=== PATIENT | female | born 1990 | race Caucasian/White ===

== ENCOUNTER → 2023-03-21 11:16 | Outpatient (CLI) | payer OTHER, SELFPAY ==
--- NOTE | ~2023-03-21 | US_ITS ---
EXAMINATION: US transvaginal DATE: 03/21/2023 11:35 INDICATION: Pelvic pain. TECHNIQUE: Multiple transvaginal sonographic images of the pelvis were obtained. COMPARISON: None. FINDINGS: The uterus measures 7.4 x 3.2 x 4.6 cm. There is no free fluid in the pelvis. The endometrial complex measures 6 mm in thickness. The right ovary measures 2.5 x 1.6 x 2.1 cm. The left ovary measures 2.2 x 2.3 x 1.7 cm. There is normal vascular flow in the ovaries. IMPRESSION: 1. Normal pelvis. Reviewed, dictated and finalized at location A. IMPRESSION: 1. Normal pelvis.
== END ==
PROVIDERS: PCP Advanced Practice Midwife; Visit Provider Advanced Practice Midwife
DX: R10.2 Pelvic and perineal pain (principal)
CPT/HCPCS: 76830

== ENCOUNTER 2025-03-12 13:28 | Emergency (ER) | payer OTHER, SELFPAY ==
[2025-03-12 13:38] VITALS: BP 123/83; PULSE 78; RESP 18; TEMP 36.1; O2SAT 100
--- NOTE | 2025-03-12 13:56 | ED_ITS ---
HPI - Extremity Problem General Chief complaint: Extremity Problem,Nontraumatic Stated complaint: LT Arm Pain / Numbness / tingling Time Seen by Provider: 03/12/25 13:56 Source: patient and RN notes reviewed Mode of arrival: ambulatory Limitations: no limitations History of Present Illness HPI Narrative: Patient presents today complaining of pain to the left elbow radiating to the left 4th and 5th fingers and up to the left shoulder. Symptoms have been present since last night. Denies any recent injury or trauma. She has tried ice, heat, and an elbow brace without improvement. History of cubital tunnel an d states she is having an exacerbation. She has not tried any [id number] Tylenol or ibuprofen as she states that typically does not help during exacerbations such as this. She is under the care of Dr. House at [facility] for her cubital tunnel, their office is closed today. She currently rates her pain 8/10. Related Data Home Medications ?Medication ?Instructions ?Recorded ?Confirmed ?Last Taken ?Type atogepant 30 mg tablet (Qulipta) mg 03/12/25 Unknown History escitalopram oxalate 10 mg tablet mg 03/12/25 Unknown History etanercept 50 mg/mL (1 mL) mg subcut 03/12/25 Unknown History subcutaneous cartridge (Enbrel Mini) hydroxychloroquine 200 mg tablet mg PO 03/12/25 Unknown History hydroxyzine HCl 50 mg tablet mg 03/12/25 Unknown History norethindrone 1 mg-ethinyl tablet 03/12/25 Unknown History estradiol 20 mcg (21)-iron 75 mg (7) tablet (Aurovela Fe 1-20 (28)) pantoprazole 40 mg tablet,delayed mg PO 03/12/25 Unknown History release propranolol 10 mg tablet mg 03/12/25 Unknown History Allergies Allergy/AdvReac Type Severity Reaction Status Date / Time No Known Allergies Allergy Verified 03/12/25 13:35 Review of Systems Review of Systems: CONSTITUTIONAL: Denies body aches, fever, chills, or sweats. EYES: Denies visual changes, redness, or discharge. ENT: Denies rhinorrhea, congestion, sore throat, or otalgia. CARDIOVASCULAR: Denies chest pain, palpitations, or edema. RESPIRATORY: Denies cough or dyspnea. GASTROINTESTINAL: Denies abdominal pain, nausea, vomiting, or diarrhea. GENITOURINARY: Denies dysuria or hematuria. SKIN: Denies rash, itching, or wounds. MUSCULOSKELETAL: Left arm pain. NEUROLOGIC: Numbness and tingling of the elbow, forearm, fingers PSYCH: Denies depression or anxiety. PMFSH Comments At time of signature, I have reviewed and agree with nursing past medical, surgical, social and family history unless otherwise noted. Please see nursing chart for further information. There is no relevant family history pertinent to the presenting complaint Exam Narrative: GENERAL: Well-appearing, well-nourished, and in no acute distress. HEAD: Normocephalic, atraumatic. EYES: EOMI. No redness or drainage. Conjunctivae normal. ENT: Mucous membranes pink and moist. NECK: Normal AROM. CHEST: No respiratory distress. EXTREMITIES: Left arm: Tenderness to the medial epicondyle extends down the forearm to the 4th and 5th fingers. No edema, erythema, ecchymosis. Pain with range of motion of the elbow and wrist. Distal sensation intact in all 5 fingers. Capillary refill normal. Radial pulse normal. Mild generalized te nderness to the upper arm and shoulder. SKIN: Warm, dry, no rash. Capillary refill normal. Normal skin turgor. NEURO: No focal deficits. Alert and oriented x3. Gait steady. PSYCH: Normal affect. No signs of depression or anxiety. Course Course Level of Care: Express Care Visit Vital Signs Vital signs: Vital Signs Temperature 97.0 F L 03/12/25 13:38 Pulse Rate 78 03/12/25 13:38 Respiratory Rate 18 03/12/25 13:38 Blood Pressure 123/83 03/12/25 13:38 Pulse Oximetry 100 03/12/25 13:38 Oxygen Delivery Room Air 03/12/25 13:38 Temperature 97.0 F L 03/12/25 13:38 Pulse Rate 78 03/12/25 13:38 Respiratory Rate 18 03/12/25 13:38 Blood Pressure 123/83 03/12/25 13:38 Pulse Oximetry 100 03/12/25 13:38 Oxygen Delivery Room Air 03/12/25 13:38 Reviewed MDM - Extremity (Nontraumatic) MDM Narrative Medical decision making narrative: Patient is a pleasant 35-year-old female patient with history lupus for which she takes Plaquenil. History of cubital tunnel syndrome. She is tender over the ulnar nerve/medial epicondyle area and is having some numbness and tingling to the 4th and 5th fingers associated with this cubital tunnel syndrome. She will be treated with prednisone burst to help with inflammation and discomfort. She has also been instructed to wear her brace that was prescribed by her orthopedist. Patient agrees with plan. Anticipatory guidance given. Differential Diagnosis Differential diagnosis: Likely other (Cubital tunnel, carpal tunnel, epicondylitis) Critical Care Time Critical Care Time Critical Care Time: No Discharge Plan Discharge Clinical Impression: Cubital tunnel syndrome Qualifiers: Laterality: left Qualified Code(s): G56.22 - Lesion of ulnar nerve, left upper limb Patient Disposition: Home Condition: Stable Additional Instructions: Please take the prednisone as directed to help with the inflammation of your ulnar nerve. Wear your brace prescribed by Dr. House. You may also take additional Tylenol or ibuprofen if needed. Follow-up next week if symptoms are not improving. Your blood pressure was elevated above 120/80 today at Urgent Care. This puts you above the threshold for follow up. Please schedule a followup visit with your personal physician as soon as possible, for further evaluation and treatment. Even blood pressure exceeding 120/80 may indicate pre-hypertension. Patient Language: [place] Prescriptions: New prednisone 20 mg tablet 40 mg PO DAILY 5 Days Qty: 10 0RF No Action hydroxyzine HCl 50 mg tablet norethindrone-e.estradiol-iron [Aurovela Fe 1-20 (28)] 1 mg-20 mcg (21)/75 mg (7) tablet propranolol 10 mg tablet pantoprazole 40 mg tablet,delayed release (DR/EC) PO hydroxychloroquine 200 mg tablet PO escitalopram oxalate 10 mg tablet Enbrel Mini 50 mg/mL (1 mL) cartridge SUBCUT Qulipta 30 mg tablet Follow-up/Referrals: Omer,Lady Quinonez NP [Primary Care Provider] - Time of Disposition: 14:04
== END 2025-03-12 14:05 | disposition home or self-care (01) ==
PROVIDERS: Emergency Provider Nurse Practitioner; PCP Nurse Practitioner
DX: G56.22 Lesion of ulnar nerve, left upper limb (principal); Z79.899 Other long term (current) drug therapy
CPT/HCPCS: 99213; G0463

== ENCOUNTER 2025-08-04 08:49 | Emergency (ER) | payer OTHER, SELFPAY ==
--- NOTE | 2025-08-04 08:51 | ED_ITS ---
HPI - URI/Sore Throat General Chief Complaint: Upper Respiratory Infection Stated Complaint: URI Symptoms Time Seen by Provider: 08/04/25 08:51 Source: patient Mode of arrival: ambulatory Limitations: no limitations History of Present Illness HPI Narrative: Ozzie is a 35 year old female patient presenting to the clinic today with c/o runny nose, non productive cough, body aches, chills, bilateral ear pain, and sore throat x3 days. She reports she has taken cough drops, zicam, and otc cold medication. Rates pain 03/24 currently. Denies any chest pain or shortness of breath. Related Data Home Medications ?Medication ?Instructions ?Recorded ?Confirmed ?Last Taken ?Type atogepant 30 mg tablet (Qulipta) mg 03/12/25 Unknown History escitalopram oxalate 10 mg tablet mg 03/12/25 Unknown History etanercept 50 mg/mL (1 mL) mg subcut 03/12/25 Unknown History subcutaneous cartridge (Enbrel Mini) hydroxychloroquine 200 mg tablet mg PO 03/12/25 Unkno wn History hydroxyzine HCl 50 mg tablet mg 03/12/25 Unknown Hist ory norethindrone 1 mg-ethinyl tablet 03/12/25 Unknown Hi story estradiol 20 mcg (21)-iron 75 mg (7) tablet (Aurovela Fe 1-20 (28)) pantoprazole 40 mg tablet,delayed mg PO 03/12/25 Unkn own History release propranolol 10 mg tablet mg 03/12/25 Unknown History Allergies Allergy/AdvReac Type Severity Reaction Status Date / Time No Known Allergies Allergy Verified 08/04/25 09:07 Review of Systems Review of Systems: Pertinent positives per HPI. Patient denies any fever, rash, headache, visual changes, dizziness, shortness of breath, chest pain, palpitations, nausea, vomiting, diarrhea, constipation, abdominal pain, or any urinary issues. [facility] Comments At the time of my signature, I reviewed and agree with the nursing past medical, surgical, social, and family history. There is no relevant family history pertinent to the patient complaint. Exam Narrative: General: Well-developed, obese, in no apparent distress Head: Normocephalic, atraumatic Eyes: Pupils equally round and reactive to light bilaterally, EOM intact, sclera and conjunctive clear, no discharge, lids normal Ears: TMs intact and clear, ear canals clear, no drainage, grossly hearing normal. Nose: Nares patent, clear nasal discharge, mild inflammation, no sinus tenderness. Mouth: Oral pharynx mildly red without lesions or masses, good dentition, MMM. Neck: Supple, trachea midline, no enlargement of anterior or posterior cervical nodes, no thyroid masses or goiter palpable. Cardio: Regular rate and rhythm, s1 and s2 normal, no murmur appreciated. Resp: Clear to auscultation bilaterally, no rhonchi, rales, wheezing or rubs Course Course Emergency Course: Portions of this record may have been created with voice recognition software. Level of Care: Express Care Visit Vital Signs Vital signs: Vital Signs Temperature 36.4 C 08/04/25 09:00 Pulse Rate 98 08/04/25 09:00 Respiratory Rate 17 08/04/25 09:00 Blood Pressure 129/86 08/04/25 09:00 Pulse Oximetry 99 08/04/25 09:00 Oxygen Delivery Room Air 08/04/25 09:00 Temperature 36.4 C 08/04/25 09:00 Pulse Rate 98 08/04/25 09:00 Respiratory Rate 17 08/04/25 09:00 Blood Pressure 129/86 08/04/25 09:00 Pulse Oximetry 99 08/04/25 09:00 Oxygen Delivery Room Air 08/04/25 09:00 Vital signs reviewed Procedures Ear Wax Removal Both Ears: Ear Wax Removal Date: 08/04/25 Cerumenolytic Used: other (Debrox) Results: Re-examined: some cerumen remains TM Examination: TM(s) intact, normal appearance and other Ear Canal Exam: atraumatic Patient Tolerated Procedure: well and no complications Complications: no problems Technique: ear canal irrigated and ear canal curetted Additional Comments: Verbal consent obtained for ear irrigation. Risk and benefits explained and patient voiced understanding. Ear irrigation performed using an elephant ear and spray water bottle. Mixture of 1/2 peroxide 1/2 water used to irrigate ear canal. Some cerumen remains and TM visualized without redness. Attempted removal with lighted curette without success Grossly hearing normal. Patient tolerated procedure well MDM - URI/Sore Throat MDM Narrative Medical decision making narrative: At the time of visit patient is resting comfortably on the exam table. Patient appears to be nontoxic. C/o runny nose, non productive cough, body aches, chills, bilateral ear pain, and sore throat x3 days. She reports she has taken cough drops, zicam, and otc cold medication. Rates pain 7/10 currently. Denies any chest pain or shortness of breath. Labs: COVID, influenza, and strep test were performed. All test was negative in the clinic today. Plan: I suspect patient has URI/pharyngitis/cerumen impaction. Supportive measures were discussed with the patient and they voiced understanding discharge instructions and agrees to treatment plan. Return precautions reviewed Differential Diagnosis Differential diagnosis: Likely upper respiratory infection, otitis media, sinusitis, viral infection, bronchitis, influenza, pharyngitis and other Lab Data Labs: Lab Results 08/04/25 Range/Units 09:22 POC Influenza A Ag Negative (Negative) POC Influenza B Ag Negative (Negative) POC SARS CoV-2 Ag Negative (Negative) POC Grp A Strep Screen Negative (Negative) Discharge Plan Discharge Clinical Impression: Bilateral impacted cerumen Upper respiratory infection Qualifiers: URI type: unspecified URI Qualified Code(s): J06.9 - Acute upper respiratory infection, unspecified Pharyngitis Qualifiers: Pharyngitis/tonsillitis etiology: unspecified etiology Qualified Code(s): J02.9 - Acute pharyngitis, unspecified Patient Disposition: Home Condition: Stable Instructions: Antibiotic Form, Pharyngitis (ED), Cold Symptoms (ED) Additional Instructions: Ear irrigation performed in the clinic today. Some cerumen remains COVID, flu, and strep test were negative in the clinic today. We will send strep for culture. Increase fluids and stay well hydrated May take Tylenol or motrin as directed on bottle for pain/fever May use Flonase 1 spray in each nare daily May take OTC antihistamines such as Zyrtec or Claritin daily as directed on bottle May apply Vicks vapor rub to chest to open sinuses Sinus rinses for congestion Cepacol spray, cough drops, throat lozenges, warm tea with honey/lemon, gargle salt water to soothe throat BRAT diet for diarrhea Clear liquids x 24 hours then advance as tolerated for nausea/vomiting Go to the ED if you develop a worsening in your condition- high fever not controlled by Tylenol or Motrin, dehydration, weakness, lethargy, shortness of breath, or chest pain. Follow up with your PCP in 3-5 days if symptoms persist. Patient Language: Mongolian Prescriptions: No Action hydroxyzine HCl 50 mg tablet norethindrone-e.estradiol-iron [Aurovela Fe 1-20 (28)] 1 mg-20 mcg (21)/75 mg (7) tablet propranolol 10 mg tablet pantoprazole 40 mg tablet,delayed release (DR/EC) PO hydroxychloroquine 200 mg tablet PO escitalopram oxalate 10 mg tablet Enbrel Mini 50 mg/mL (1 mL) cartridge SUBCUT Qulipta 30 mg tablet Follow-up/Referrals: UNKNOWN,DOCTOR [Primary Care Provider] Time of Disposition: 09:58 Quality NIHSS Nursing Documentation ED NIHSS nursing documentation: reviewed/agree
[2025-08-04 09:00] VITALS: BP 129/86; PULSE 98; RESP 17; TEMP 36.4; O2SAT 99
[2025-08-04] MEDS: CARBAMIDE PEROXIDE 6.5% OT SOLN 15 ML BTL 5 DROP EACH EAR (09:20)
[2025-08-04 09:24] LABS: EDCOVIDSCREEN Negative (Negative); EDINFLUASCREEN Negative (Negative); EDINFLUBSCREEN Negative (Negative); EDSTREPNEGPOS1 Negative (Negative)
--- OUTSIDE RECORDS SUMMARY | 2025-08-04 09:33 | XMS_ITS | Clinical Summary ---
Author Organization [facility] Address [address] Attn: Epic Prelude ADT [place] [address] Care Team Providers Care Performance Analyst Name Role Phone Unavailable Primary Care Provider Unavailabl e Allergies No known active allergies Social History Tobacco Use Types Packs/Day Years Used Date Smoking Tobacco: Never Assessed Comments Unknown Sex and Gender Information Value Date Recorded Sex Assigned at Not on file Legal Sex Female 2:02 PM [facility] Gender Identity Not on file Sexual Orientation Not on file Plan of Treatment Health Maintenance Due Date Last Done Comments DTAP/TDAP/TD VACCINES (1 - Tdap) 2009 HEPATITIS B VACCINES (1 of 3 - 19+ 3-dose series) 12/15 HPV/Cotest (21-29) 2011 HPV VACCINES (1 - 3-dose SCDM series) 2017 CERVICAL CANCER SCREENING 01/09/2020 HPV/Cotest (30-65) 01/09/2020 PAP SMEAR 01/09/2020 INFLUENZA VACCINE (#1) [address] [place] [address] [place] [address] RX [facility] [employer] [facility] [employer]
--- OUTSIDE RECORDS SUMMARY | 2025-08-04 09:33 | XMS_ITS | CCD ---
Author Name Interface, [id number] [facility] [place] [address] [facility] [place] [address] Reason for Visit Social History Date Name Value 01/19/2022 Sex Female
--- OUTSIDE RECORDS SUMMARY | 2025-08-04 09:34 | XMS_ITS | CCD ---
Author Name Interface, [id number] [facility] [place] [address] [facility] [place] [address] Reason for Visit Social History Date Name Value 01/19/2022 Sex Female
--- OUTSIDE RECORDS SUMMARY | 2025-08-04 09:35 | XMS_ITS | Data Portability ---
Author Organization [employer] , [facility] Address [address] [place] [address] Assessment No assessment recorded. Plan of Treatment Reminders Order Date Submit Date Provider Last Modified By Organization Details Last Modified Time Details Appointments None recorded. Lab bacterial vaginosis + vaginitis panel, vaginal 2024 025 [employer] [facility], [address] [place], [address], 5 15:08:41 HPV E6+E7 mRNA, qualitative PCR, cervix 2024 025 [employer] [facility], [address] [place], [address], 5 15:08:42 pap, LB 2024 025 [facility], [address] [facility], [place], [address], 5 10:30:07 Referral None recorded. Procedures None recorded. Surgeries None recorded. Imaging None recorded. Medication Orders 10/04 (28) 1 mg-20 mcg (21)/75 mg (7) tablet 2024 025 [employer] [id number], [address], [place], [address], 14:00:16 Patient TargetsNo targets recorded. Patient Instructions Encounter Date Encounter Id Patient Instructions Last Modified By Organization Details Last Modified Time 11/23/2024 [id number] body mass index: care instructions Not available 11/23/2024 11:20:22 A healthy lifestyle: care instructions Not available 11/23/2024 11:20:22 Following the [employer] Food Guide: Care Instructions Not available 11/23/2024 11:20:22 exercise program : getting started Not available 11/23/2024 11:20:22 learning about control Not available 11/23/2024 11:20:22 Reason for Referral None Reported. Results Created Date Observation Date Name Description Value Unit Range Abnormal Flag Note LastModifiedBy Organization Detail LastModifiedTime 11/24/19 25 11/24/2024 VAGIN ITIS PLUS STD PANEL bacterial vaginosis BV neg negati ve normal Not Available [address], [address], 11/24/2024 15:08:41 11/24/19 25 11/24/2024 VAGIN ITIS PLUS STD PANEL mika species C. spp neg negati ve normal Not Available [address], [address], 11/24/2024 15:08:41 11/24/19 25 11/24/2024 VAGIN ITIS PLUS STD PANEL mika glabrata C. gla neg negati ve normal Not Available [address], [address], 11/24/2024 15:08:41 11/24/19 25 11/24/2024 VAGIN ITIS PLUS STD PANEL trichomonas vaginalis CV/TV TRICH neg negati ve normal Not Available [address], [address], 11/24/2024 15:08:41 11/24/19 25 11/24/2024 VAGIN ITIS PLUS STD PANEL chlamydia trachomatis CT neg negati ve normal This repor t is inten ded for us in clini solomon monit oring and manag ement of patie nts. It is not inten ded for use in medic al-le gal appli catio n. Not Available [address], [address], 11/24/2024 15:08:41 11/24/19 25 11/24/2024 VAGIN ITIS PLUS STD PANEL neisseria gonorrhoeae GC neg negati ve normal This repor t is inten ded for us in clini solomon monit oring and manag ement of mode mitchell. It is not inten ded for use in medic al-le gal appli catio n. Not Available [facility] [address] [place], [address], 11/24/2024 15:08:41 11/24/19 25 11/24/2024 HPV HIGH RISK HPV high risk Negati ve negati ve normal The HPV High Risk assay is inten ded for use as co-te sting with cytol ogy and not as a subst itute for regul ar cervi solomon cytol ogy scree christine. This assay is not inten ded for use as a scree christine devic e for women under age 30 with dennis l cervi solomon cytol ogy. Not Available [facility] [address] [place], [address], 11/24/2024 15:08:42 11/24/19 25 11/26/2024 THINP REP TIS PAP clinical information: normal None given Not Available [employer] [address] [address] [place], [address], 11/26/2024 10:30:06 11/24/19 25 11/26/2024 THINP REP TIS PAP LMP: normal None given Not Available [employer] [address] [address] [place], [address], 11/26/2024 10:30:06 11/24/19 25 11/26/2024 THINP REP TIS PAP prev. Pap: normal None given Not Available [employer] [address] [address] [place], [address], 11/26/2024 10:30:06 11/24/19 25 11/26/2024 THINP REP TIS PAP prev. BX: normal None given Not Available [facility] [place] [address] [place], [address], 11/26/2024 10:30:06 11/24/1911/26/2024 THINP REP TIS PAP source: normal Cervi x Not Available [address] [address] [place], [address], 11/26/2024 10:30:06 11/24/1911/26/2024 THINP REP TIS PAP statement of adequacy: normal Satis facto ry for evalu ation . Endoc ervic al/tr ansfo rmati on zone compo nent prese nt. Age and/o r menst rual statu s not provi ded Not Available [address] [address] , [place], [address], 11/26/2024 10:30:06 11/24/1911/26/2024 THINP REP TIS PAP interpretati on/result: normal Cytol ogy Resul ts: Negat gricel for intra epith elial lesio n or malig jose miguel . Not Available [address] [address] [place], [address], 11/26/2024 10:30:06 11/24/19 25 11/26/2024 THINP REP TIS PAP comment: normal This Pap test has been evalu ated with compu ter malik mellissa techn ology . Not Available [address] [address] [place], [address], 11/26/2024 10:30:06 11/24/19 25 11/26/2024 THINP REP TIS PAP cytotechnolo gist: normal BES, CT( CP) CT scree christine locat ion: [place] [place] [address] Not Available [address] [address] [place], [address], 11/26/2024 10:30:06 11/24/19 25 11/26/2024 THINP REP TIS PAP review cytotechnolo gist: normal LMT, CT( CP) CT scree christine locat ion: [address] [place] [address] [address] [place] [place] [address] Not Available [address] [address] [place], [address], 11/26/2024 10:30:06 11/24/19 25 11/26/2024 THINP REP TIS PAP comment EXPLA NATOR Y NOTE: The Pap is a scree christine test for cervi solomon cance r. It is not a diagn ostic test and is subje ct to false negat gricel and false posit gricel resul ts. It is most relia ble when a satis facto ry sampl e, regul mariah obtai viv, is submi tted with relev ant clini solomon findi ngs and histo ry, and when the Pap resul t is evalu ated along with histo danyell and curre nt clini solomon infor matio n. Not Available [facility] [address] [address] [address], [place], [address], 11/26/2024 10:30:06 Result Notes None recorded. Procedures Surgical History Date Name Laterality Status Provider Name and Address Organization Details Recorded Time 4 Date of Last Pap Smear completed [facility] 11/23/2024 10:49:14 Colonoscopy completed [facility] 11/23/2024 10:49:15 C Section completed [facility] 11/23/2024 10:49:15 Imaging Results None recorded. Procedure Notes None recorded. Medical Equipment None Reported. Allergies No known drug allergies Medications Name Sig Start Date Stop Date Status Note LastModified by Organization Details LastModified Time amoxicillin 500 mg capsule TAKE 1 CAPSULE BY MOUTH TWICE A DAY FOR 10 DAYS 11/23 completed Not Available Not Available Not Available trazodone 50 mg tablet TAKE 0.5-1 TABLET (25-50 MG) BY MOUTH EVERY DAY AT BEDTIME active Not Available Not Available No t Available fluconazole 150 mg tablet TAKE 1 TABLET (150 MG TOTAL) BY MOUTH ONCE FOR 1 DOSE. 11/23 completed Not Available Not Available Not Available clonazepam 0.5 mg tablet TAKE 1/2 (HALF A) TABLET (0.25 MG) BY MOUTH 2 TIMES PER DAY NEEDED FOR ANXIETY 11/23 completed Not Available Not Available Not Available prednisone 5 mg tablet TAKE 2 TABS BY MOUTH X 5 DAYS, THEN 1 TAB BY MOUTH X 5 DAYS, THEN 1/2 A TAB BY MOUTH X 5 DAYS 11/23 completed Not Available Not Available Not Available hydroxyzine HCl 50 mg tablet TAKE 1 TABLET BY MOUTH EVERY DAY NEEDED FOR 30 DAYS active Not Available Not Available No t Available amoxicillin 875 mg tablet TAKE 1 TABLET BY MOUTH TWICE A DAY FOR 10 DAYS 11/23 completed Not Available Not Available Not Available pantoprazol e 40 mg tablet,kari yed release TAKE 1 TABLET BY MOUTH EVERY DAY active Not Available Not Available No t Available bupropion HCl 75 mg tablet TAKE 1 TABLET BY MOUTH EVERY DAY FOR 7 DAYS 11/23 completed Not Available Not Available Not Available hydroxychlo roquine 200 mg tablet TAKE 1 TABLET BY MOUTH TWICE A DAY active Not Available Not Available No t Available () 1.5 mg-30 mcg tablet TAKE 1 TABLET BY MOUTH EVERY DAY CONTINOUS LY active Not Available Not Available No t Available bupropion HCl XL 150 mg 24 hr tablet, extended release TAKE 1 TABLET BY MOUTH EVERY DAY IN THE MORNING active Not Available Not Available No t Available 10/04 () 1 mg-20 mcg (21)/75 mg (7) tablet Take 1 tablet every day by oral route for 90 days. 2024 active Not Available Not Available Not Avai lable (28) 1.5 mg-30 mcg (21)/75 mg (7) tablet TAKE 1 TABLET BY MOUTH EVERY DAY 11/23 completed Not Available Not Available Not Available Enbrel 50 mg/mL (1 mL) subcutaneou s syringe Inject 1 mL every week by subcutane ous route. active Not Available Not Available No t Available duloxetine 40 mg capsule,del ayed release TAKE 1 CAPSULE BY MOUTH TWICE A DAY FOR 30 DAYS active Not Available Not Available No t Available Qulipta 30 mg tablet TAKE 1 TABLET BY MOUTH EVERY DAY active Not Available Not Available No t Available Vitals Date Recorded Body height Body mass index (BMI) Body weight Provider Name and Address Organization Details Last Updated DateTime 11/23/2024 154.94 cm 36.8 kg/m2 99421.51 g Vinicius Alvarado [facility] [place] 11/23/2024 10:47:45 Social History Question Answer Notes LastModified by [employer] Details LastModified Time Tobacco Smoking Status Former Smoker Vinicius Alvarado null, [facility] [place] [facility] 11/23/2024 10:49:15 If You Are , What Was Your Level Of Alcohol Consumption Prior To ? None [email or web address] Information not available 11/23/2024 Are You Blind Or Do You Have Difficulty Seeing? No [email or web address] Information not available 11/23/2024 Are You Deaf Or Do You Have Serious Difficulty Hearing? No [email or web address] Information not available 11/23/2024 What Type Of Diet Are You Following? REGULAR [email or web address] Information not available 11/23/2024 When Did You Quit Smoking? 6-10yearssince lastcigarette [email or web address] Information not available 11/23/2024 How Many Children Do You Have? 2 [email or web address] Information not available 11/23/2024 What Is Your Relationship Status? [email or web address] Information not available 11/23/2024 Are You Sexually Active? No [email or web address] Information not available 11/23/2024 At What Age Did You Start Smoking Tobacco? 17 [email or web address] Information not available 11/23/2024 How Much Tobacco Do You Smoke? No [email or web address] Information not available 11/23/2024 How Many Years Have You Smoked Tobacco? 7 [email or web address] Information not available 11/23/2024 Sex: Unknown Functional Status Question Answer Note LastModified by Organizat ion Details LastModified Time What is your level of alcohol consumption? None [email or web address] Information not available 11/23/2024 Are you currently employed? No [email or web address] Information not available 11/23/2024 What is your exercise level? Occasional [email or web address] Information not available 11/23/2024 Mental Status None recorded. Family History Relationship Description Onset Age of this Age Resolved Age Notes LastModified by Organization Details LastModified Time Brother Depressive disorder [email or web address] Not available 2024 10:49:14 Father Hyperthyroid ism [email or web address] Not available 2024 10:49:14 Father Depressive disorder [email or web address] Not available 2024 10:49:14 Father Hypothyroidi sm [email or web address] Not available 2024 10:49:14 Paternal Grandmother Hypercholest erolemia [email or web address] Not available 2024 10:49:14 Paternal Grandmother Depressive disorder [email or web address] Not available 2024 10:49:14 Paternal Grandmother Hypertensive disorder [email or web address] Not available 2024 10:49:14 Mother Depressive disorder [email or web address] Not available 2024 10:49:14 Unspecified Relation Myocardial infarction [email or web address] Not available 11/23 10:49:14 Unspecified Relation Malignant neoplasm of lung [email or web address] Not available 2024 10:49:14 Unspecified Relation Heart disease [email or web address] Not available 2024 10:49:14 Maternal Grandmother Hypercholest erolemia [email or web address] Not available 2024 10:49:14 Maternal Grandmother Depressive disorder [email or web address] Not available 2024 10:49:14 Maternal Grandmother Hypertensive disorder [email or web address] Not available 2024 10:49:14 Maternal Grandfather Depressive disorder [email or web address] Not available 2024 10:49:14 Paternal Grandfather Depressive disorder [email or web address] Not available 2024 10:49:14 Medical History Condition Response Anxiety Disorder Y Autoimmune disease Y Arthritis Y Polycystic Ovarian Syndrome Y Depression Y Seasonal allergies Y Lupus Y IBS (Irritable Bowel Syndrome) Y Panic Attacks Y Fibromyalgia Y Headaches/migraines Y GERD (reflux) Y Gynecological History Statement/Question Response Date of LMP Frequency of Cycle (Q days) I don't have them Date of Last Pap Smear 12/04/2023 Duration of Flow (days) I don't have the m Current Control Method BCPs Age at Menarche Between 10 and 12 Obstetrics History GPAL:G 2 P 2 0 0 2 Type Value Full Term 2 Living 2 Total 2 Past Encounters Encounter ID Performer Location Encounter Start Date Encounter Closed Date Diagnosis/Indication Diagnosis SNOMED-CT Code Diagnosis ICD10 Code Diagnosis IMO Codes Diagnosis Note [id number] MORRO SHARMA NP [facility] [address] [place] [place] [address] 11/23/2024 10:42:10 11/25/2024 11:53:06 Gynecologic examination 16252966 Z01.419 34 y.o. here for annual exam.Pap / HPV cotesting due , discussed natural course of HPV infection, ASCCP guidelines . Plan to repeat cotesting in- Contracept gricel counseling : Discussed options including OCPs, NuvaRing, Nexplanon, hormonal and copper IUDs. Discussed risks, benefits, and side effects of each option, including risk of VTE with hormonal contracept ion and uterine perforatio n with IUD.- Routine labs done with PCP- Mammo at age 40, no increased risk- Depression screen NEG- BMI counseling , diet and exercise reviewed- RTO for annual or PRN Screening for malignant neoplasm of cervix 845680257 Z12.4 ASCCP guidelines reviewed with patient. Pap Hx:pap collected today. Pt states understand ing and is amenable to POC. Surveillan ce of contraception 996573845 Z30.40 Depression screening 171 494317 Z13.31 See Intake Screening - PHQ Vaginal irritation 92082 6004 N89.8 [id number] Patient report inner labial irritation and itching. patient denies odor, dysuria or other symptoms. Health Concerns Section Related Observation LastModified by Organization Detai ls LastModified Time None Recorded Concern Status LastModified by Organization Details LastModified Time None Recorded Advance Directives Directive None Recorded Payers Insurance Date Sequence Insurance Name Policy Number Policy Gunn Covered Member ID Gunn Member ID Guarantor Name 11/23/2024 1 [employer] [facility] ON OR AFTER 08/15/2020 (MEDICAID REPLACEMENT - HMO) Ozzie Valencia [id number] Ozzie Valencia Notes Date Note Type Note Provider Name and Address Organization Details Recorded Time 11/23/2024 text/html Annual GYNReport ed by PatientHistoryFor history, (abd cramping).Genitourinar y symptomsFor vagina, patient reportswhite,vaginal burning, andvaginal itching. For menstrual cycle, patient reportsnormal menses. For urinary symptoms, patient reportsno hematuriaandno incontinence. For vulva, patient reportsno genital lesion.Breast symptomsFor breast, patient reportsno breast pain,no breast lump, andno nipple discharge.Contraceptio nFor current contraception, patient reportsoral contraceptives.Endocri ne symptomsFor sexual complaints, patient reportsno sexual complaints,no pain during intercourse, andnormal libido. For menopausal symptoms, patient reportsno menopausal symptomsandnormal vaginal lubrication.Psychologi solomon symptomsFor psychological symptoms, patient reportsno depression,no anxiety, andno pmdd.Preventative measuresFor preventive measures, patient reportsencourage self breast examination,encourage regular exercise, andencourage regular mammograms starting age 40.ROS as noted in the HPI Deswillem is a 34 y/o female. Last PAP 2023. PHQ9 score 12. Pt would like to make sure her Junel is changed to the ongoing script and not the 7 day. Pt says she had a PAP 05/2023. It came back abnormal. Repeat PAP was 11/2023 and was normal. MORRO SHARMA, BRIAN[address] [place], [address], [facility] 11/24/2024 14:02:36 OBGyn Episode Ob Episode Information Episode Created Date Number of Fetuses Patient Bloodtype Patient rh Status Prepregnancy Weight lbs Domestic Partner Domestic Partner Phone Father Name Exhibit Builder Status 11/24/19 25 1 CLOSED Fetus Data First Name Last Name Admitted to NICU Weight (g) Sex Living Outcome Pediatric Complications Fetus ID Race Codes Race Delivery Type M Full Term [id number] Primary Efe Calculation Initial Efe Date Initial Exam Date Initial Exam Provider Initial Ultrasound Date Last Menstrual Period Date Ultra Sound Weeks Gestation 0 Eighteen To Twenty Week Efe Update Ultra Sound Date Fundal Height At Umbil Quickening Date Ultra Sound Latest Weeks Gestation Final Efe Confirmed By Final Efe Confirmed Date Final Efe Date Ultra Sound Latest Days Gestation 0 0 Menstrual History Last Menstrual Date Menses Monthly On Bcp Conception Prior Menses Frequency Hcg Plus Date Menarche Onset Age Delivery Information Delivery Date Delivery Type Labor Anesthesia Weeks Gestation Incision Type Labor Labor Length Hrs Delivered By Post Complications Tubal Sterilization Discharge Date Comments 7 Discharge Information Feeding Method Contraceptive Method Maternal HG B and HCT Levels Ob Episode Information Episode Created Date Number of Fetuses Patient Bloodtype Patient rh Status Prepregnancy Weight lbs Domestic Partner Domestic Partner Phone Father Name Exhibit Builder Status 11/24/19 25 1 CLOSED Fetus Data First Name Last Name Admitted to NICU Weight (g) Sex Living Outcome Pediatric Complications Fetus ID Race Codes Race Delivery Type F Full Term [id number] Repeat Efe Calculation Initial Efe Date Initial Exam Date Initial Exam Provider Initial Ultrasound Date Last Menstrual Period Date Ultra Sound Weeks Gestation 0 Eighteen To Twenty Week Efe Update Ultra Sound Date Fundal Height At Umbil Quickening Date Ultra Sound Latest Weeks Gestation Final Efe Confirmed By Final Efe Confirmed Date Final Efe Date Ultra Sound Latest Days Gestation 0 0 Menstrual History Last Menstrual Date Menses Monthly On Bcp Conception Prior Menses Frequency Hcg Plus Date Menarche Onset Age Delivery Information Delivery Date Delivery Type Labor Anesthesia Weeks Gestation Incision Type Labor Labor Length Hrs Delivered By Post Complications Tubal Sterilization Discharge Date Comments 1 Discharge Information Feeding Method Contraceptive Method Maternal HG B and HCT Levels
--- OUTSIDE RECORDS SUMMARY | 2025-08-04 09:35 | XMS_ITS | CCD ---
Author Name Interface, [id number] [facility] [place] [address] [facility] [place] [address] Reason for Visit Social History Date Name Value 01/19/2022 Sex Female
--- OUTSIDE RECORDS SUMMARY | 2025-08-04 09:35 | XMS_ITS | Patient Health Record ---
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 Phone Kat Arredondo DO Primary Care Provider [phone] Reason For Referral No Information Medications Medication SIG (Take, Route, Frequency, Duration) Notes Start Date End Date Status Fluocinolone Acetonide 0.01 % Instill 5 drop(s) in affected ear(s) bid for 7 days Otic fluocinolone acetonide oil 0.01 % otic (ear) Drops [Instill 5 drop(s) in affected ear(s) bid for 7 days], #1bottle 09/07/2013 Active Replesta 1.25 MG (21766 UT) Take one wafer once per week Oral Replesta 50,000 unit oral Wafer [Take one wafer once per week], #12wafers 06/10/2019 Active Problems Problem Type SNOMED Code ICD Code Onset Dates Problem Status W/U Status Risk Notes Problem Generalized anxiety disorder (69854999) Anxiety, generalized (300.02) 09/07/20 13 Active confirmed [id number]-136 4393- Problem Vitamin D deficiency (32969705) Vitamin D deficiency, unspecified (E55.9) 05/28/20 18 Active confirmed [id number]-[id number] 4393- Problem Mixed hyperlipidemia (786552119) Mixed hyperlipidemia (E78.2) 09/07/20 13 Active confirmed [id number] 4393- Problem Obstructive sleep apnea syndrome (disorder) (76545239) Obstructive sleep apnea (adult) (pediatric) (G47.33) 01/29/20 19 Active confirmed [id number] 4393- Problem Chronic migraine without aura, non-refractory (disorder) (433479405840545) Migraine without aura, not intractable, without status migrainosus (G43.009) 11/11/19 19 Active confirmed [id number]-[id number] 4393- Problem Chronic fatigue syndrome (disorder) (45601769) Chronic fatigue, unspecified (R53.82) 05/08/20 18 Active confirmed [id number] 4393- Problem Lipid screening (847351590) Encounter for screening for lipoid disorders (Z13.220) 11/11/19 19 Active confirmed [id number]-136 4393- Problem Pain of ear (finding) (004655728) Ear pain (388.70) 09/07/20 13 Problem resolved confirmed [id number]-136 4393- Problem Screening for malignant neoplasm of cervix (procedure) (817680275) Screening for cervical cancer (V76.2) 09/07/20 13 Problem resolved confirmed Deven-136 4393- Plan Of Treatment No Information Insurance Providers Payer Name Payer Address Payer Phone Subscriber Number Group Number Insured Name Patient Relationship to Insured Coverage Start Date Coverage End Date [facility] [employer] [address] [address] [place] [address] [id number] ESHA MOELLER Spouse - patient is the spouse of the insured [address] [facility] [employer] [address] [address] [place] [address] [id number] ESHA MOELLER Spouse - patient is the spouse of the insured Medical (General) History Surgical History Surgery Date(Month/Year) NONE
--- OUTSIDE RECORDS SUMMARY | 2025-08-04 09:35 | XMS_ITS | CCD ---
Author Name Interface, [id number] [place] [address] [facility] [place] [address] Reason for Visit Social History Date Name Value 01/19/2022 Sex Female
--- OUTSIDE RECORDS SUMMARY | 2025-08-04 09:35 | XMS_ITS | CCD ---
Author Name Interface, [id number] [facility] [place] [address] [facility] [place] [address] Reason for Visit Social History Date Name Value 01/19/2022 Sex Female
--- OUTSIDE RECORDS SUMMARY | 2025-08-04 09:35 | XMS_ITS | Data Portability ---
Author Organization [place] - [facility] auto[facility] - [facility] [place] Address [address] [place] [address] Assessment Encounter Date Assessment Date Assessment LastModified by Organization Details LastModified Time 06/05/2023 06/05/2023 Pt with diagnosi s noted: chronic pain, SLE, Fibromyalgia - pt has tried OTC and Rx treatments without relief. Cleared to advance through our medical Cannabis program. Patient to contact Jeni or Theresa to schedule their next appointment. The documentation details a telehealth encounter with the patient on this date of service. Audio and video communications were used during this encounter to provide a [id number] interactive encounter. Components of this encounter are a culmination of visual and patient-assisted findings. [email or web address] Not available 06/05/2023 14:27:34 06/06/2023 06/06/2023 Pt here with below diagnosis - pt here for evaluation for their condition, evaluation of their medication use, and discussion for alternative treatments. [email or web address] Not available 06/06/2023 15:25:32 Plan of Treatment Reminders Order Date Submit Date Provider Last Modified By Organization Details Last Modified Time Details Appointments None record ed. Lab None record ed. Referral None record ed. Procedures None record ed. Surgeries None record ed. Imaging None record ed. Medication Orders None record ed. Patient TargetsNo targets recorded. Patient Instructions Encounter Date Encounter Id Patient Instructions Last Modified By Organization Details Last Modified Time 06/05/2023 [id number] lupus: care instructions [email or web address] Not available 06/05/2023 14:27:59 06/06/2023 [id number] I have discussed the risks and benefits of Medical Marijuana. Pt understands I am not prescribing this medication. I am certifying that this patient has a condition that is recognized by the state as qualifying for medical marijuana and this recommendation does not constitute a prescription for medical cannabis. Pt understands that my physician written certification form does not guarantee Medical Marijuana certification nor does it endorse the patient as needing medical marijuana. Patient understands that Medical Marijuana is a drug that the federal government has classified cannabis as a Schedule I controlled substance. Schedule 1 substances are defined, in part, as having (1) a high potential for abuse; (2) no currently accepted medical use in treatment in the [place]; and (3) a lack of accepted Safety for use under medical supervision. Federal law prohibits the manufacture, distribution and possession of cannabis even in states, which have modified their state laws to treat cannabis as a medicine. Pt also agrees that me, and the [facility] [place] are my treating physicians and that we are in charge of treating the patient's conditions and that the patient will make a good grisel effort to remain under my treatment plan and acknowledge there will be follow up visits from this date forward to monitor the patient's condition. Discussed risks and benefits of Medical Marijuana. I have spent time discussing the patients condition, pain/medical management of the patient given their debilitating condition, the risks and benefits of this medication, a history and physical, gathering old medical records to look at the disease processes being evaluated, and answering of all questions. [email or web address] Not available 06/06/2023 15:25:33 Reason for Referral None Reported. Medical Equipment None Reported. Allergies No known drug allergies Medications Name Sig Start Date Stop Date Status Note LastModified by Organization Details LastModified Time amoxicillin 500 mg capsule TAKE 1 CAPSULE BY MOUTH TWICE A DAY FOR 10 DAYS active Not Available Not Available No t Available meloxicam 15 mg tablet TAKE 1 TABLET BY MOUTH EVERY DAY active Not Available Not Available No t Available sucralfate 1 gram tablet TAKE 1 TABLET BY MOUTH 4 TIMES DAILY BEFORE MEALS AND NIGHTLY. active Not Available Not Available No t Available clonazepam 0.5 mg tablet TAKE HALF OF A TABLET (0.25 MG) BY MOUTH 2 TIMES PER DAY NEEDED FOR ANXIETY active Not Available Not Available No t Available acetazolamid e 250 mg tablet TAKE 1 TABLET BY MOUTH TWICE A DAY active Not Available Not Available No t Available ketorolac 10 mg tablet TAKE 1 TABLET BY MOUTH EVERY 6 HOURS NEEDED FOR PAIN. active Not Available Not Available No t Available methotrexate sodium 2.5 mg tablet TAKE 8 TABLETS BY MOUTH ONCE WEEKLY FOR 90 DAYS active Not Available Not Available No t Available pantoprazole 40 mg tablet,delay ed release TAKE 1 TABLET BY MOUTH EVERY DAY active Not Available Not Available No t Available prednisone 50 mg tablet TAKE 1 TABLET BY MOUTH EVERY DAY FOR 5 DAYS active Not Available Not Available No t Available folic acid 1 mg tablet TAKE 1 TABLET BY MOUTH EVERY DAY BEFORE A MEAL active Not Available Not Available No t Available gabapentin 100 mg capsule TAKE 1 CAPSULE BY MOUTH THREE TIMES A DAY active Not Available Not Available Not Available hydroxychlor oquine 200 mg tablet TAKE 1 TABLET BY MOUTH TWICE A DAY active Not Available Not Available No t Available albuterol sulfate HFA 90 mcg/actuatio n aerosol inhaler INHALE 2 PUFFS INTO THE LUNGS EVERY 6 HOURS NEEDED FOR WHEEZE active Not Available Not Available No t Available amoxicillin 875 mg-potassium clavulanate 125 mg tablet TAKE 1 TABLET BY MOUTH TWICE A DAY FOR 10 DAYS active Not Available Not Available No t Available (21) 1.5 mg-30 mcg tablet TAKE 1 TABLET BY MOUTH EVERY DAY CONTINOUSLY active Not Available Not Available Not Available bupropion HCl XL 150 mg 24 hr tablet, extended release TAKE 1 TABLET BY MOUTH EVERY DAY IN THE MORNING active Not Available Not Available No t Available duloxetine 20 mg capsule,kari yed release TAKE 1 CAPSULE BY MOUTH EVERY DAY active Not Available Not Available No t Available duloxetine 40 mg capsule,kari yed release TAKE 1 CAPSULE BY MOUTH EVERY DAY active Not Available Not Available No t Available Enbrel Mini 50 mg/mL (1 mL) subcutaneous cartridge active Not Available Not Available No t Available Nurte ODT 75 mg disintegrati ng tablet TAKE 1 TABLET BY MOUTH DAILY NEEDED FOR MIGRAINE. MAX OF 1 TABLET IN A 24 HOUR PERIOD. active Not Available Not Available No t Available Wegovy 1.7 mg/0.75 mL subcutaneous pen injector INJECT 1.7 MG INTO THE SKIN ONCE A WEEK. active Not Available Not Available No t Available Wegovy 1 mg/0.5 mL subcutaneous pen injector INJECT 1MG INTO THE SKIN ONCE A WEEK active Not Available Not Available No t Available Wegovy 0.25 mg/0.5 mL subcutaneous pen injector INJECT 0.25MG INTO THE SKIN ONE TIME PER WEEK active Not Available Not Available No t Available Wegovy 0.5 mg/0.5 mL subcutaneous pen injector INJECT 0.5 MG INTO THE SKIN ONCE A WEEK. active Not Available Not Available No t Available Qulipta 60 mg tablet active Not Available Not Available No t Available Vitals None Recorded Social History None recorded. Functional Status None recorded. Mental Status None recorded. Family History Nothing Reported. Medical History No medical history recorded. Gynecological HistoryNo gynecological history recorded. Obstetrics History GPAL:G 0 P 0 0 0 0 Past Encounters Encounter ID Performer Location Encounter Start Date Encounter Closed Date Diagnosis/Indication Diagnosis SNOMED-CT Code Diagnosis ICD10 Code Diagnosis IMO Codes Diagnosis Note [id number] MARC ANDRES [facility] [address] [place] [address] 06/05/2023 14:14:53 06/05/2023 15:36:46 Fibromyalgia 858175066 M79.7 Systemic l upus erythematosus 85666391 M32.9 Chronic pain 59615120 G8 9.29 [id number] MARC Alexis [facility] [address] [place] [address] 06/06/2023 14:21:00 06/06/2023 16:02:17 Chronic pain 83099361 G89.29 Health Concerns Section Related Observation LastModified by Organization Detai ls LastModified Time None Recorded Concern Status LastModified by Organization Details LastModified Time None Recorded Advance Directives Directive None Recorded Payers Insurance Date Sequence Insurance Name Policy Number Policy Gunn Covered Member ID Gunn Member ID Guarantor Name 06/05/2023 1 [employer] (POS II) [id number] Mario Valencia [id number] Ozzie Valencia Notes Date Note Type Note Provider Name and Address Organization Details Recorded Time 06/05/2023 text/html Patient presents via telemedicine for assessment of: chronic pain. Patient suffers from fibromyalgia, lupus. Previously held MJcard, but . Symptoms began: years ago Description of symptoms: Intermittent dull, achy pain and at times sharp Severity of symptoms: Patient has difficulty with performing daily activities and keeping up with her children 2/2 to pain Continuous or Intermittent: Continuous Things that help: MJ, certain medications Things that make it worse: extreme weather changes, illnesses Other providers/speciali sts seen?: PCP, rheumatology OTC meds tried?: many Rx meds tried?: Meloxicam, methotrexate, Hydroxychloroquine , Embrel H/o surgical intervention?: None MARC ANDRES [address], [address], [place], [address], [facility] 06/05/2023 14:28:21 06/06/2023 text/html ROS as noted in the HPI The patient would like to discuss medications, the disease, and how to handle it. Pt would also like to discuss alternative treatments to this condition. Pt was referred here for further evaluation and treatment if necessary. Patient has a diagnosis of qualifying condition - CHRONIC PAIN MARC Alexis [address], [address], [place], [address], [facility] 06/06/2023 15:26:11 OBGyn Episode No OBEpisode recorded.
--- OUTSIDE RECORDS SUMMARY | 2025-08-04 09:36 | XMS_ITS | CCD ---
Author Name Interface, [id number] [facility] [place] [address] [facility] [place] [address] Reason for Visit Social History Date Name Value 01/19/2022 Sex Female
--- OUTSIDE RECORDS SUMMARY | 2025-08-04 09:36 | XMS_ITS | CCD ---
Author Name Interface, [id number] [facility] [place] [address] [facility] [place] [address] Reason for Visit Social History Date Name Value 01/19/2022 Sex Female
--- OUTSIDE RECORDS SUMMARY | 2025-08-04 09:36 | XMS_ITS | CCD ---
Author Name Interface, [id number] [facility] [place] [address] [facility] [place] [address] Reason for Visit Social History Date Name Value 01/19/2022 Sex Female
== END 2025-08-04 10:06 | disposition home or self-care (01) ==
PROVIDERS: Emergency Provider Nurse Practitioner Family
DX: H61.23 Impacted cerumen, bilateral (principal); J06.9 Acute upper respiratory infection, unspecified; J02.9 Acute pharyngitis, unspecified; Z20.822 Contact with and (suspected) exposure to COVID-19; K21.9 Gastro-esophageal reflux disease without esophagitis; M79.7 Fibromyalgia; M06.9 Rheumatoid arthritis, unspecified; M32.9 Systemic lupus erythematosus, unspecified; F41.9 Anxiety disorder, unspecified; F32.A Depression, unspecified
CPT/HCPCS: 69210; 87081; 87426; 87804; 87880; 99213; A9270; G0463